=== PATIENT | male | born 1995 | race Caucasian/White ===

== ENCOUNTER 2016-12-12 19:15 | Emergency (ER) | payer OTHER ==
[~2016-12-12] VITALS: Ht 195.6 cm; Wt 109.1 kg
[2016-12-12] MEDS ORDERED: PYRI1TAB5 PO (20:51)
[2016-12-12] MEDS ORDERED: CIPR-249 PO (20:51)
[2016-12-12] MEDS ORDERED: AZITHROMYCIN 250 MG TAB PO ONE (21:00)
[2016-12-12] MEDS ORDERED: cefTRIAXone SOD 250 MG VIAL (J0696) IM ONE (21:00)
[2016-12-12 21:10] VITALS: BP 164/65
== END 2016-12-12 21:24 | disposition home or self-care (01) ==
LOC: M ED 19:15
DX: R30.0 Dysuria (principal)
CPT/HCPCS: 81001; 87086; 87491; 87591; 96372; 99283; J0696